=== PATIENT | female | born 1985 ===

== ENCOUNTER → 2025-03-14 11:10 | Outpatient (REF) | payer BC, SELFPAY | LOC: WDC 11:10 | PROVIDERS: ATTENDING PHYSICIAN Nurse Practitioner | DX: Z12.31 Encounter for screening mammogram for malignant neoplasm of breast (principal) | CPT/HCPCS: 77063; 77067 ==

== ENCOUNTER → 2025-08-30 09:34 | Outpatient (REF) | payer BC, SELFPAY ==
[2025-08-30 10:58] LABS: Hematocrit 40.0 % (37.0-47.0); Hemoglobin 13.5 g/dL (12.0-16.0); Mean Corp Hgb Conc. 33.8 g/dL (33.0-37.0); Mean Corpuscular Volume 89.5 fL (81.0-99.0); Nucleated Red Blood Cells % 0 %; Platelet Count 425 10^3/uL (130-400); Red Cell Dist. Width 11.9 % (11.5-14.5)
[2025-08-30 11:40] LABS: FSH 5.7 mIU/ml
[2025-08-30 11:53] LABS: ALT (SGPT) 21 U/L (0-35); AST (SGOT) 24 U/L (14-36); Albumin 4.4 g/dl (3.5-5.0); Alkaline Phosphatase 59 U/L (38-126); Calcium 9.3 mg/dl (8.4-10.2); Carbon Dioxide 26 mmol/L (22-30); Chloride 106 mmol/L (98-107); Glucose 103 mg/dl (70-99); Potassium 4.7 mmol/L (3.5-5.1); Sodium 137 mmol/L (135-145); Total Protein 7.6 g/dl (6.3-8.2); eGFR > 60.00
[2025-08-30 12:31] LABS: Blood Urea Nitrogen 17 mg/dl (7-17)
== END ==
LOC: REG 09:34
PROVIDERS: Nurse Practitioner Family
DX: J45.20 Mild intermittent asthma, uncomplicated (principal); R23.2 Flushing; F41.9 Anxiety disorder, unspecified; R63.5 Abnormal weight gain; E66.09 Other obesity due to excess calories; Z68.30 Body mass index [BMI] 30.0-30.9, adult; E66.811 Obesity, class 1
CPT/HCPCS: 36415; 80053; 82627; 82670; 83001; 83002; 84443; 85025